=== PATIENT | female | born 1955 | race Caucasian/White ===

== ENCOUNTER 2017-03-01 10:53 | Emergency (ER) | payer OTHER ==
[~2017-03-01] VITALS: Ht 157.5 cm; Wt 85.7 kg
[~2017-03-01 10:53] MED LIST: ALBUTEROL 0.5ML INH; ALBUTEROL MININEB NEB; ALBUTEROL17 GM INH; ALBUTEROL17 GM NEB; ARTHROTEC 751 TAB.EC PO; ASPIR-TRIN325 MG PO; ATIVAN PO; DOXYCYCLINE PO; DUONEB; IBUPROFEN800 MG PO; LISINOPRIL PO; LISINOPRIL-HCTZ1 T15 PO; LISINOPRIL10 MG PO; MEDROL PO; PRILOSEC PO; PROVENTIL INH; TRIAMCINOLONE TOP; WALGREENS PHARMACY; [UNRECOGNIZED DRUG - REMARK]; [UNRECOGNIZED DRUG - REMARK]; [UNRECOGNIZED DRUG - REMARK]
== END 2017-03-01 11:35 | disposition home or self-care (01) ==
LOC: CFTX 10:53 → CED 10:53 → CFTX 11:31
DX: L03.113 Cellulitis of right upper limb (principal); I10 Essential (primary) hypertension; J44.9 Chronic obstructive pulmonary disease, unspecified; Z90.49 Acquired absence of other specified parts of digestive tract; F17.210 Nicotine dependence, cigarettes, uncomplicated; L40.9 Psoriasis, unspecified
CPT/HCPCS: 99281